=== PATIENT | female | born 1990 | race Hispanic/Latino ===

== ENCOUNTER 2024-03-25 13:53 | Emergency (ER) | payer SELFPAY ==
--- NOTE | 2024-03-25 14:11 | EDPHYS ---
Physician Documentation [facility] Name: Coco Gallegos Age: 34 yrs Sex: Female : 1990 Arrival Date: 03/25/2024 Time: 13:53 Bed IW1 Private MD: ED Physician Miles Cheney HPI: 03/25 14:07 This 34 yrs old Female presents to ER via Ambulatory with complaints of covid+.kb 14:07 Pt is a 34 year old female who complains of cough, congestion, chills and sore throat kb that started last night. States she took a covid test today and it was positive so she came in to see if there was some medication that she needed. . Historical: - Allergies: 14:04 No Known Allergies; kc6 - Home Meds: 14:04 None [Active]; kc6 - PMHx: 14:04 None; kc6 - PSHx: 14:04 None; kc6 - Immunization history:: Adult Immunizations up to date. - Infectious Disease History:: Denies. - Social history:: Smoking status: Patient denies any tobacco usage or history of. ROS: 14:06 Constitutional: As per HPI kb Exam: 14:06 Constitutional: This is a well developed, well nourished patient who is awake, alert, kb and in no acute distress. Head/Face: Normocephalic, atraumatic. ENT: Moist Mucous membranes Cardiovascular: Regular rate Respiratory: Respirations even and unlabored. No increased work of breathing. Talking in full sentences Abdomen/GI: Soft, non-tender. No distention Skin: Warm, dry with normal turgor. Normal color. MS/ Extremity: Pulses equal, no cyanosis. Neurovascular intact. Full, normal range of motion. Neuro: Awake and alert, GCS 15, oriented to person, place, time, and situation. Moves all extremities. Normal gait. Vital Signs: 14:03 BP 128 / 87; Pulse 85; Resp 17 S; Temp 97.7; Pulse Ox 100% on R/A; Height 5 ft. 0 in. kc6 (R); MDM: 14:00 Patient medically screened. kb 14:07 Differential diagnosis: covid, uri, flu. Data reviewed: vital signs, nurses notes. I kb considered the following discharge prescriptions or medication management in the emergency department I discussed and recommended Over The Counter medications, Antibiotics: At this time antibiotics are not recommended, Antivirals: At this time, antivirals are not recommended. Test considered but Not performed: X-ray: chest x-ray considered but lungs clear bilaterally, respirations even and unlabored, o2 sat 100% on room air. Counseling: I had a detailed discussion with the patient and/or guardian regarding the historical points, exam findings, and any diagnostic results supporting the discharge/admit diagnosis, the need for outpatient follow up, a family practitioner, to return to the emergency department if symptoms worsen or persist or if there are any questions or concerns that arise at home. Administered Medications: No medications were administered Disposition: 17:52 I was immediately available on-site in the Emergency Department for consultation in the ms3 care of the patient. Disposition Summary: 03/25/24 14:10 Discharge Ordered Notes: Location: Home kb Condition: Stable kb Diagnosis - SARS-associated coronavirus as the cause of diseases classified elsewhere kb Followup: kb - With: Emergency Department - When: As needed - Reason: Worsening of condition Followup: kb - With: Private Physician - When: 2 - 3 days - Reason: Recheck today's complaints, Continuance of care, Re-evaluation by your physician Discharge Instructions: - Discharge Summary Sheet kb - COVID-19 kb - Viral Illness, Adult kb Forms: - Medication Reconciliation Form kb - Antibiotic Education kb - Prescription Opioid Use kb - Patient Portal Instructions kb - Leadership Thank You Letter kb - School release form kc6 Signatures: Helen Chester FNP-C FNP-Miles Georges DO DO ms3 Chanell Zimmerman, RN RN kc6
--- NOTE | 2024-03-25 14:11 | ER ---
Nurse's Notes [facility] Name: Coco Gallegos Age: 34 yrs Sex: Female : 1990 Arrival Date: 03/25/2024 Time: 13:53 Bed IW1 Private MD: Diagnosis: SARS-associated coronavirus as the cause of diseases classified elsewhere Presentation: 03/25 14:03 Chief complaint: Patient states: she tested + for covid at school today. reports her kc6 symptoms started last night. Coronavirus screen: At this time, the client does not indicate any symptoms associated with coronavirus-19. Ebola Screen: No symptoms or risks identified at this time. Initial Sepsis Screen: Does the patient meet any 2 criteria? No. Patient's initial sepsis screen is negative. Does the patient have a suspected source of infection? No. Patient's initial sepsis screen is negative. Risk Assessment: Do you want to hurt yourself or someone else? Patient reports no desire to harm self or others. Onset of symptoms was March 25, 2024. 14:03 Method Of Arrival: Ambulatory [facility] 14:03 Acuity: BARBI 4 kc6 Triage Assessment: 14:04 General: Appears in no apparent distress. comfortable, well groomed, well developed, kc6 Behavior is calm, cooperative, appropriate for age, Reports chills for 12-24 hours. Pain: Denies pain. EENT: Reports nasal congestion pain when swallowing. Neuro: Level of Consciousness is awake, alert, obeys commands, Oriented to person, place, time, situation, Appropriate for age. Cardiovascular: Capillary refill < 3 seconds. Respiratory: Airway is patent Trachea midline Respiratory effort is even, unlabored, Respiratory pattern is regular, symmetrical. GI: No signs and/or symptoms were reported involving the gastrointestinal system. : No signs and/or symptoms were reported regarding the genitourinary system. Derm: No signs and/or symptoms reported regarding the dermatologic system. Skin is intact, is healthy with good turgor, Skin is pink, warm \T\ dry. Musculoskeletal: No signs and/or symptoms reported regarding the musculoskeletal system. Circulation, motion, and sensation intact. Capillary refill < 3 seconds, Range of motion: intact in all extremities. Historical: - Allergies: 14:04 No Known Allergies; kc6 - Home Meds: 14:04 None [Active]; kc6 - PMHx: 14:04 None; kc6 - PSHx: 14:04 None; kc6 - Immunization history:: Adult Immunizations up to date. - Infectious Disease History:: Denies. - Social history:: Smoking status: Patient denies any tobacco usage or history of. Screenin:27 [facility] ED Fall Risk Assessment (Adult) History of falling in the last 3 months, kc6 including since admission No falls in past 3 months (0 pts) Confusion or Disorientation No (0 pts) Intoxicated or Sedated No (0 pts) Impaired Gait No (0 pts) Mobility Assist Device Used No (0 pt) Altered Elimination No (0 pt) Score/Fall Risk Level 0 - 2 = Low Risk. Abuse screen: Denies threats or abuse. Denies injuries from another. Nutritional screening: No deficits noted. Tuberculosis screening: No symptoms or risk factors identified. Vital Signs: 14:03 BP 128 / 87; Pulse 85; Resp 17 S; Temp 97.7; Pulse Ox 100% on R/A; Height 5 ft. 0 in. kc6 (R); ED Course: 13:58 Patient arrived in ED. ra3 13:59 Helen Chester FNP-C is [facility]. kb 13:59 Miles Cheney DO is Attending Physician. kb 14:04 Triage completed. kc6 14:04 Arm band placed on. kc6 14:27 Allergy band placed. Adult w/ patient. kc6 14:27 No provider procedures requiring assistance completed. Patient did not have IV access kc6 during this emergency room visit. Administered Medications: No medications were administered Medication: 14:27 VIS not applicable for this client. kc6 Outcome: 14:10 Discharge ordered by . kb 14:27 Discharged to home ambulatory, with significant other, kc6 14:27 Condition: good 14:27 Discharge instructions given to patient, significant other, Instructed on discharge instructions, follow up and referral plans. Demonstrated understanding of instructions, follow-up care, 14:27 Patient left the ED. kc6 Signatures: Helen Chester FNP-C FNP-Ckb Campbell, Kaitlyn, RN RN kc6 Teresa Fonseca ra3
[2024-03-25 14:32] VITALS: BP 128/87; TEMP 97.7; O2SAT 100
== END 2024-03-25 14:27 | disposition home or self-care (01) ==
LOC: ER 13:53
DX: U07.1 COVID-19 (principal)
CPT/HCPCS: 99282